=== PATIENT | female | born 1995 | race Caucasian/White ===

== ENCOUNTER → 2016-09-16 | Outpatient (CLI) | payer OTHER ==
[~2016-09-16] MED LIST: ESCI10TA17 PO; ETONMIS VAGRING
--- NOTE | 2016-09-16 14:36 | DIAGNOSTIC IMAGING REPORT ---
CHEST 2 VIEWS ROUTINE CLINICAL HISTORY: CHEST TIGHTNESS, SOB, FEVER COMPARISON STUDY: Chest CT July 07, 2015. FINDINGS: Lung volumes are normal. There is no pneumothorax or pleural effusion. Pulmonary vascularity is normal. Cardiomediastinal silhouette is normal. Lungs are clear. IMPRESSION: No acute cardiopulmonary findings. Electronically signed by: Clement Larsen M.D. 09/16/2016 2:35 PM Dictated Date/Time: 09/16/2016 2:34 PM
== END | disposition home or self-care (01) ==
LOC: C.RADBBURG 14:17
PROVIDERS: ATTEND Physician Assistant
DX: R50.9 Fever, unspecified (principal); R07.89 Other chest pain; R06.02 Shortness of breath

== ENCOUNTER 2017-06-30 20:04 | Emergency (ER) | payer SELFPAY ==
[~2017-06-30] VITALS: Ht 167.6 cm; Wt 101.8 kg
[2017-06-30 20:33] VITALS: TEMP 37.9; Ht 167.6 cm; Wt 101.8 kg
[2017-06-30] MEDS ORDERED: ONDANSETRON INJ 2 MG/ML 2 ML VIAL IV STA (20:47)
[2017-06-30] MEDS ORDERED: SODIUM CHLORIDE 0.9% 1000ML 1,000 ML IV STA (20:47)
[2017-06-30] MEDS ORDERED: OPTIRAY 320 IV PRN (21:00)
[2017-06-30 21:08] LABS: HEMATOCRIT 39.7 % (37-47); HEMOGLOBIN 13.5 g/dL (12.0-16.0); MEAN CELL VOLUME 82.2 fL (80-100); MEAN PLATELET VOLUME 9.2 fL (7.4-10.4); PLATELET COUNT 164 K/uL (130-400); RED CELL DISTRIBUTION WIDTH CV 14.7 % (11.5-14.5); RED CELL DISTRIBUTION WIDTH SD 43.8 fL (36.4-46.3); WHITE BLOOD COUNT 6.65 K/uL (4.8-10.8)
[2017-06-30 21:26] LABS: ALBUMIN 3.6 gm/dl (3.4-5.0); CALCIUM 8.9 mg/dl (8.5-10.1); CREATININE 0.92 mg/dl (0.60-1.20); POTASSIUM 3.7 mmol/L (3.5-5.1)
[2017-06-30 21:29] LABS: TOTAL PROTEIN 7.9 gm/dl (6.4-8.2)
[2017-06-30] MEDS ORDERED: ACETAMINOPHEN 500 MG TAB PO STA (23:02)
--- NOTE | 2017-06-30 23:21 | EMERGENCY ROOM VISIT NOTE ---
History First contact with patient: 20:36 Chief Complaint: ABDOMINAL PAIN Stated Complaint: NAUSEA,PAIN IN STOMACH,FEVER 6 DAYS Nursing Triage Summary: pt c/o fever, nausea nd right lower bad pain since last friday, sent in by pcp to r/o appy History of Present Illness The patient is a 22 year old female who presents to the Emergency Room with complaints of right lower quadrant abdominal pain, fever, nausea, and vomiting 6 days. The patient has been experiencing the above symptoms in addition to chills and a headache intermittently for the past 6 days. She states she has been running a fever between 101 and 102F. The fever does improve with Tylenol and Motrin. She states she has been experiencing mid abdominal pain, which seems to be radiating toward the right lower quadrant more recently. The pain is not affected by food or drink, the patient is tolerating food and liquids without complication. She denies any urinary symptoms including dysuria , hematuria, urinary frequency, or urinary hesitancy. She recently started a new job, so has tried not to take off work due to being on probation. The patient states she did take a negative test on , but she does use a NuvaRing for control. She saw her primary care provider at [facility] today and was sent here to rule out appendicitis. She denies any chest pain, dyspnea, tachycardia, upper respiratory infection symptoms, sore throat, nasal congestion, otalgia, upper abdominal pain, diarrhea, constipation. The patient's last bowel movement was this morning and was normal. Review of Systems A complete 10 point review of systems was reviewed with the patient with pertinent positives and negatives as per history of present illness. All else were negative. Past Medical/Surgical History Medical Problems: (1) Seasonal allergies (2) Sepsis Surgical Problems: (1) S/P tonsillectomy Family History Cancer Diabetes mellitus Heart disease Social History Smoking Status: Never Smoker Alcohol Use: none Drug Use: none Marital Status: in relationship Housing Status: lives with significant other Occupation Status: employed Current/Historical Medications Scheduled Escitalopram (Lexapro), 20 MG PO DAILY Etonogestrel/Ethinyl Estradiol (Nuvaring), 1 EA VAGRING MONTHLY Physical Exam Vital Signs Date Time Temp Pulse Resp B/P (MAP) Pulse Ox O2 Delivery O2 Flow Rate FiO2 3/5/18 20:33 37.9 91 18 141/90 98 Room Air Physical Exam VITALS: Vitals are noted on the nurse's note and reviewed by myself. Vital signs stable. GENERAL: This is a 22-year-old obese white female, in no acute distress, nondiaphoretic, well-developed well-nourished. SKIN: The skin was without rashes, erythema, edema, or bruising. There is no tenting of the skin. Capillary reflex less than 2 seconds. HEAD: Normocephalic atraumatic. EARS: External auditory canals clear, tympanic membranes pearly butcher without erythema or effusion bilaterally. EYES: Pupils equal round and reactive to light and accommodation. Conjunctivae without injection, sclerae without icterus. Extraocular movements intact. NOSE: Patent, turbinates without inflammation or discharge. No sinus tenderness. MOUTH: Mucous membranes moist. Tonsils are not enlarged. Pharynx without erythema or exudate. Uvula midline. Airway patent. Tongue does not deviate. NECK: Supple without nuchal rigidity. No lymphadenopathy. No thyromegaly. Cervical spine is nontender. No JVD. HEART: Regular rate and rhythm without murmurs gallops or rubs. LUNGS: Clear to auscultation bilaterally without wheezes, rales or rhonchi. No dullness to percussion. No retractions or accessory muscle use. ABDOMEN: Positive bowel sounds x 4. Normal tympanic percussion. Periumbilical and right lower quadrant abdominal tenderness on palpation. The abdomen was otherwise soft, nontender, without masses or organomegaly. Hart sign negative. No guarding or rebound tenderness. MUSCULOSKELETAL: No muscle atrophy, erythema, or edema noted. Full range of motion without joint tenderness in all extremities. No tenderness to palpation. Normal gait. Strength 5/5 throughout. NEURO: Patient was alert and oriented to person place and time. Normal sensation to light and sharp touch. Deep tendon reflexes 2+ throughout. No focal neurological deficits. Medical Decision & Procedures Laboratory Results 06/30/17 20:55 Red Blood Count 4.83, Mean Corpuscular Volume 82.2, Mean Corpuscular Hemoglobin 28.0, Mean Corpuscular Hemoglobin Concent 34.0, Mean Platelet Volume 9.2 06/30/17 20:55 Test 06/30/17 20:55 06/30/17 21:00 White Blood Count 6.65 K/uL (4.8-10.8) Red Blood Count 4.83 M/uL (4.2-5.4) Hemoglobin 13.5 g/dL (12.0-16.0) Hematocrit 39.7 % (37-47) Mean Corpuscular Volume 82.2 fL (80-100) Mean Corpuscular Hemoglobin 28.0 pg (25-34) Mean Corpuscular Hemoglobin Concent 34.0 g/dl (32-36) Platelet Count 164 K/uL (130-400) Mean Platelet Volume 9.2 fL (7.4-10.4) RDW Standard Deviation 43.8 fL (36.4-46.3) RDW Coefficient of Variation 14.7 % (11.5-14.5) Neutrophils % (Manual) 40.9 % Lymphocytes % (Manual) 29.1 % Variant Lymphocytes % (manual) 26.4 % Monocytes % (Manual) 1.8 % Basophils % (Manual) 1.8 % Neutrophils # (Manual) 2.72 K/uL (1.4-6.5) Total Absolute Neutrophils 2.72 K/uL (1.4-6.5) Lymphocytes # (Manual) 1.94 K/uL (1.2-3.4) Absolute Variant Lymphocytes 1.76 K/uL Total Absolute Lymphocytes 3.69 K/uL (1.2-3.4) Monocytes # (Manual) 0.12 K/uL (0.11-0.59) Basophils # (Manual) 0.12 K/uL (0-0.2) Anion Gap 8.0 mmol/L (3-11) Est Creatinine Clear Calc Drug Dose 113.5 ml/min Estimated GFR () 101.0 Estimated GFR (Non- 87.2 BUN/Creatinine Ratio 9.5 (10-20) Lactic Acid Level 1.1 mmol/L (0.4-2.0) Calcium Level 8.9 mg/dl (8.5-10.1) Total Bilirubin 0.4 mg/dl (0.2-1) Aspartate Amino Transf (AST/SGOT) 33 U/L (15-37) Alanine Aminotransferase (ALT/SGPT) 41 U/L (12-78) Alkaline Phosphatase 86 U/L (45-117) Total Protein 7.9 gm/dl (6.4-8.2) Albumin 3.6 gm/dl (3.4-5.0) Globulin 4.3 gm/dl (2.5-4.0) Albumin/Globulin Ratio 0.8 (0.9-2) Lipase 197 U/L (73-393) Urine Test NEG (NEG) Medications Administered Medications (Trade) Dose Ordered Sig/Dinora Route Start Time Stop Time Status Last Admin Dose Admin Sodium Chloride 1,000 ml @ 999 mls/hr Q1H1M STAT IV 06/30/17 20:47 06/30/17 21:47 DC 06/30/17 21:09 999 MLS/HR Ondansetron HCl (Zofran Inj) 4 mg NOW STAT IV 06/30/17 20:47 06/30/17 20:51 DC 06/30/17 21:09 4 MG ED Course The patient was seen and evaluated as above. IV access obtained, labs drawn. The patient was given 1L NSS and 4mg Zofran for symptoms. The patient was given p.o. contrast to drink prior to CT scan. Labs were reviewed. I discussed the findings with the patient at bedside. The patient requested a dose of Tylenol for pain. She was given 1000mg Tylenol PO. The case was discussed with and signed out to Jennie Lynch PA-C. Medical Decision This is a 22-year-old female patient presents to the emergency department today complaining of intermittent fevers and abdominal pain associated with nausea for the past week. The patient was seen by her PCP today and complaining of periumbilical and right lower quadrant abdominal pain, and was sent to the emergency department to rule out appendicitis. On evaluation, CBC was without leukocytosis, anemia, thrombus cytopenia. There is no bandemia. Urine test was negative. Lipase was negative. CMP did not show any significant renal, hepatic, electrolyte abnormalities. Urinalysis is still pending. CT abdomen/pelvis with IV and p.o. contrast is pending. I am concerned for possible appendicitis versus urinary tract infection. The patient was signed out to Jennie Lynch PA-C at the end of my shift. She will evaluate CT scan and UA. Etiologies such as appendicitis, diverticulitis, obstruction, inflammatory bowel disease, renal colic, PUD, biliary pathology, pancreatitis, mesenteric ischemia, aortic pathology, infections, genitourinary, UTI, perforated viscus, PID, STD, as well as others were entertained. Medication Reconcilliation Current Medication List: was personally reviewed by me Blood Pressure Screening Patient's blood pressure: Normal blood pressure Impression Primary Impression: Right lower quadrant abdominal pain Departure Information Referrals Kelsi Hogan PA-C (PCP) Patient Instructions My [facility]
--- NOTE | 2017-07-01 00:59 | EMERGENCY ROOM VISIT NOTE ---
ED Visit Note This case is signed out to me from Alexandra Hope PA-C pending CT and reevaluation in stable condition. Patient is having intermittent abdominal pain for a week. She was sent for CT for rule out appendicitis. CT scan was negative for appendicitis. Patient did not have acute abdomen on exam. She is well- appearing. No leukocytosis. Negative urine. Negative hCG. She is advised to rest, stay well hydrated, do a bland diet and follow-up family care in a day or 2 here in the ER sooner for abdominal pain, fevers, vomiting, worsening signs or symptoms or as needed. She was informed the pain persisted that she should see GI for possible colonoscopy. #1 abdominal pain, right lower quadrant Discharge instructions: DO NOT drive, drink alcohol, operate machinery, or perform dangerous activities today. You were given medications in the ER that can affect your ability to safely function or operate a vehicle. Ibuprofen(Motrin, Advil) may be used for fever or pain. Use 600mg every six hours as needed. Take with food. Avoid using more than 2400mg in a 24 hour period. Do not use 2400mg per day for more than three consecutive days without physician direction. Prolonged inappropriate use can lead to stomach upset or ulcers. (AND/OR) Acetaminophen(Tylenol) may be used for fever or pain. Use 1000mg every six hours as needed. Avoid using more than 3000mg in a 24 hour period. Rest and drink plenty of fluids as tolerated. Slow sips of water or sports drinks are recommended instead of large amounts all at once. Continue current medications. Once your stomach is settled start with a clear liquid diet (jello, soup broth, etc.) and then advance as tolerated. You should avoid full, heavy meals for about 24 hrs from the time your symptoms resolved. Return to the ER immediately for worsening or persistent abdominal pain, vomiting, fevers, chest pains, difficulty breathing, black or bloody stools, worsening of your condition, or as needed. Follow up with your primary physician in 24 hours for a recheck of your current condition. Problem List Medical Problems: (1) Seasonal allergies Status: Chronic Surgical Problems: (1) S/P tonsillectomy Status: Resolved Current/Historical Medications Scheduled Escitalopram (Lexapro), 20 MG PO DAILY Etonogestrel/Ethinyl Estradiol (Nuvaring), 1 EA VAGRING MONTHLY Allergies Coded Allergies: Amoxicillin (Verified Allergy, Intermediate, HIVES, 06/30/17) RASH/HIVES, EDEMA TO THROAT, LIPS, MOUTH Vital Signs Date Time Temp Pulse Resp B/P (MAP) Pulse Ox O2 Delivery O2 Flow Rate FiO2 06/30/17 20:33 37.9 91 18 141/90 98 Room Air Laboratory Results 06/30/17 20:55 Red Blood Count 4.83, Mean Corpuscular Volume 82.2, Mean Corpuscular Hemoglobin 28.0, Mean Corpuscular Hemoglobin Concent 34.0, Mean Platelet Volume 9.2 06/30/17 20:55 Test 06/30/17 20:55 06/30/17 21:00 06/30/17 21:30 White Blood Count 6.65 K/uL (4.8-10.8) Red Blood Count 4.83 M/uL (4.2-5.4) Hemoglobin 13.5 g/dL (12.0-16.0) Hematocrit 39.7 % (37-47) Mean Corpuscular Volume 82.2 fL (80-100) Mean Corpuscular Hemoglobin 28.0 pg (25-34) Mean Corpuscular Hemoglobin Concent 34.0 g/dl (32-36) Platelet Count 164 K/uL (130-400) Mean Platelet Volume 9.2 fL (7.4-10.4) RDW Standard Deviation 43.8 fL (36.4-46.3) RDW Coefficient of Variation 14.7 % (11.5-14.5) Neutrophils % (Manual) 40.9 % Lymphocytes % (Manual) 29.1 % Variant Lymphocytes % (manual) 26.4 % Monocytes % (Manual) 1.8 % Basophils % (Manual) 1.8 % Neutrophils # (Manual) 2.72 K/uL (1.4-6.5) Total Absolute Neutrophils 2.72 K/uL (1.4-6.5) Lymphocytes # (Manual) 1.94 K/uL (1.2-3.4) Absolute Variant Lymphocytes 1.76 K/uL Total Absolute Lymphocytes 3.69 K/uL (1.2-3.4) Monocytes # (Manual) 0.12 K/uL (0.11-0.59) Basophils # (Manual) 0.12 K/uL (0-0.2) Anion Gap 8.0 mmol/L (3-11) Est Creatinine Clear Calc Drug Dose 113.5 ml/min Estimated GFR () 101.0 Estimated GFR (Non- 87.2 BUN/Creatinine Ratio 9.5 (10-20) Lactic Acid Level 1.1 mmol/L (0.4-2.0) Calcium Level 8.9 mg/dl (8.5-10.1) Total Bilirubin 0.4 mg/dl (0.2-1) Aspartate Amino Transf (AST/SGOT) 33 U/L (15-37) Alanine Aminotransferase (ALT/SGPT) 41 U/L (12-78) Alkaline Phosphatase 86 U/L (45-117) Total Protein 7.9 gm/dl (6.4-8.2) Albumin 3.6 gm/dl (3.4-5.0) Globulin 4.3 gm/dl (2.5-4.0) Albumin/Globulin Ratio 0.8 (0.9-2) Lipase 197 U/L (73-393) Urine Test NEG (NEG) Urine Color DK YELLOW Urine Appearance CLOUDY (CLEAR) Urine pH 5.0 (4.5-7.5) Urine Specific [place] 1.027 (1.000-1.030) Urine Protein NEG (NEG) Urine Glucose (UA) NEG (NEG) Urine Ketones TRACE (NEG) Urine Occult Blood NEG (NEG) Urine Nitrite NEG (NEG) Urine Bilirubin NEG (NEG) Urine Urobilinogen NEG (NEG) Urine Leukocyte Esterase TRACE (NEG) Urine WBC (Auto) 5-10 /hpf (0-5) Urine RBC (Auto) 5-10 /hpf (0-4) Urine Hyaline Casts (Auto) 1-5 /lpf (0-5) Urine Epithelial Cells (Auto) >30 /lpf (0-5) Urine Bacteria (Auto) 1+ (NEG) Medications Administered Medications (Trade) Dose Ordered Sig/Dinora Route Start Time Stop Time Status Last Admin Dose Admin Sodium Chloride 1,000 ml @ 999 mls/hr Q1H1M STAT IV 06/30/17 20:47 06/30/17 21:47 DC 06/30/17 21:09 999 MLS/HR Ondansetron HCl (Zofran Inj) 4 mg NOW STAT IV 06/30/17 20:47 06/30/17 20:51 DC 06/30/17 21:09 4 MG Acetaminophen (Tylenol Tab) 1,000 mg NOW STAT PO 06/30/17 23:02 06/30/17 23:03 DC 06/30/17 23:14 1,000 MG Departure Information Impression Primary Impression: Right lower quadrant abdominal pain Referrals Kelsi Hogan PA-C (PCP) Patient Instructions [facility]
[2017-07-01 01:13] VITALS: BP 124/75; PULSE 82; O2SAT 97
--- NOTE | 2017-07-01 06:55 | DIAGNOSTIC IMAGING REPORT ---
ABDOMEN AND PELVIS CT WITH IV AND ORAL CONTRAST CT DOSE: 987.04 mGy.cm HISTORY: Acute right lower quadrant abdominal pain with fever RLQ abdominal pain, fever TECHNIQUE: Multiaxial CT images of the abdomen and pelvis were performed following the use of intravenous and oral contrast. A dose lowering technique was utilized adhering to the principles of ALARA. COMPARISON STUDY: CT abdomen and pelvis 04/18/2016. FINDINGS: Lung bases are clear. No pneumatosis or pneumoperitoneum. The imaged inferior cardiac chambers are unremarkable. Liver, gallbladder, pancreas and adrenal glands are within normal limits. Spleen is mildly enlarged, 14 cm. Kidneys, ureters and urinary bladder are within normal limits. A pessary device is noted within the vagina. Uterus and adnexa are unremarkable. Trace free pelvic fluid, likely physiologic. Aorta is normal in course and caliber. IVC appears unremarkable. No bulky adenopathy. There is no bowel obstruction identified. The appendix appears normal. Underdistention of small bowel within the left upper quadrant causes minimal wall thickening. No evidence of enteritis. Soft tissues are unremarkable. Bones appear to be intact. Transitional lumbosacral anatomy with broadened and elongated right L5 transverse process causing pseudoarticulation with the adjacent right sacral base. IMPRESSION: 1. No acute intra-abdominal or intrapelvic abnormality identified, specifically the appendix appears normal. 2. Mild splenomegaly. 3. Transitional lumbosacral anatomy. Electronically signed by: Alphonso Winn M.D. 07/01/2017 6:54 AM Dictated Date/Time: 07/01/2017 6:50 AM
== END 2017-07-01 01:15 | disposition home or self-care (01) ==
LOC: C.EDB 20:05 → C.EDC 07-01 01:15
DX: R10.31 Right lower quadrant pain (principal); J30.2 Other seasonal allergic rhinitis; Z80.9 Family history of malignant neoplasm, unspecified; Z83.3 Family history of diabetes mellitus; Z82.49 Family history of ischemic heart disease and other diseases of the circulatory system; Z79.899 Other long term (current) drug therapy

== ENCOUNTER 2017-07-02 00:41 | Emergency (ER) | payer SELFPAY ==
[~2017-07-02] VITALS: Ht 167.6 cm; Wt 100.0 kg
[~2017-07-02 00:41] MED LIST changes: -ETONMIS VAGRING
[2017-07-02] MEDS ORDERED: ACETAMINOPHEN 500 MG TAB PO STA (00:57)
[2017-07-02] MEDS ORDERED: SODIUM CHLORIDE 0.9% 1000ML 2,000 ML IV STA (00:57)
[2017-07-02] MEDS ORDERED: ONDANSETRON INJ 2 MG/ML 2 ML VIAL IV STA (00:57)
[2017-07-02] MEDS ORDERED: DEXAMETHASONE **PF** INJ 10 MG/ML VIAL IV ONE (01:00)
[2017-07-02 01:03] VITALS: Ht 167.6 cm; Wt 100.0 kg
[2017-07-02 01:18] VITALS: O2SAT 97
[2017-07-02 01:32] LABS: INFLUENZA B ANTIGEN Neg for Influ B (NEG)
[2017-07-02 01:48] LABS: HEMATOCRIT 36.5 % (37-47); HEMOGLOBIN 12.3 g/dL (12.0-16.0); MEAN CELL VOLUME 81.5 fL (80-100); MEAN CORPUSCULAR HEMOGLOBIN 27.5 pg (25-34); MEAN CORPUSCULAR HGB CONC 33.7 g/dl (32-36); MEAN PLATELET VOLUME 8.9 fL (7.4-10.4); PLATELET COUNT 146 K/uL (130-400); RED CELL DISTRIBUTION WIDTH CV 14.9 % (11.5-14.5); WHITE BLOOD COUNT 5.39 K/uL (4.8-10.8)
[2017-07-02 01:57] LABS: PTT PATIENT 25.4 SECONDS (21.0-31.0)
[2017-07-02] MEDS ORDERED: CEFTRIAXONE SOD INJ 2,000 MG in DEXTROSE 5% 50ML 50 ML IV STA (02:05)
[2017-07-02 02:16] LABS: ALBUMIN 3.4 gm/dl (3.4-5.0); ALT/SGPT 45 U/L (12-78); AST/SGOT 38 U/L (15-37); BLOOD UREA NITROGEN 10 mg/dl (7-18); CALCIUM 8.4 mg/dl (8.5-10.1); CARBON DIOXIDE 21 mmol/L (21-32); CREATININE 1.01 mg/dl (0.60-1.20); GLUCOSE 101 mg/dl (70-99); POTASSIUM 3.6 mmol/L (3.5-5.1); SODIUM 137 mmol/L (136-145)
[2017-07-02 02:27] LABS: ALKALINE PHOSPHATASE 85 U/L (45-117)
[2017-07-02] MEDS ORDERED: LIDOCAINE HCL 1% 20 ML VIAL ONE (02:30)
[2017-07-02] MEDS ORDERED: SODIUM CHLORIDE 0.9% 1000ML 1,000 ML IV STA (02:48)
[2017-07-02 03:16] LABS: CSF GLUCOSE 54 mg/dl (40-70); CSF TOTAL PROTEIN 38.3 mg/dl (15.0-45.0)
[2017-07-02] MEDS ORDERED: GADAVIST IV PRN (03:40)
[2017-07-02] MEDS ORDERED: ONDANSETRON HOME PACK 4MG OD TAB PO ONE (04:45)
--- NOTE | 2017-07-02 04:52 | EMERGENCY ROOM VISIT NOTE ---
History First contact with patient: 00:51 Chief Complaint: VOMITING Stated Complaint: CHEST PAIN,NAUSEA,VOMITTING,SHAKES Nursing Triage Summary: Nausea, vomiting, shaking, chest discomfort and fevers for the past week. Pt seen here yesterday, sx's not resolved. History of Present Illness The patient is a 22 year old female who presents to the Emergency Room with complaints of fever, chills, chest pain, nausea, vomiting today. Patient complains of headache and neck discomfort today. Pain currently 5 out of 10. Nothing makes it better or worse. She is tolerating fluids. Patient works at a senior living. Patient states for the past week she has been having intermittent abdominal discomfort with intermittent fevers. She was seen here yesterday and had a negative abdominal CT scan. No recent travel. T-max 102. Patient denies dyspnea, cough, sore throat, sinus pain and congestion, rhinorrhea, diarrhea, vaginal pain or discharge, urinary symptoms. Patient denies IV drug abuse. Patient did not receive the flu vaccine. Upon further questioning after abnormal LP, patient states she has been suffering from intermittent headache for years and photopsia with back pain and diplopia. She has not seen a neurologist for this. No known history of idiopathic intracranial hypertension. No prolonged complete loss of vision. Patient denies localized weakness, seizures, recreational drug use. Review of Systems An 10 system review of systems was completed with positives and pertinent negatives listed in the HPI. Past Medical/Surgical History Medical Problems: (1) Seasonal allergies (2) Sepsis Surgical Problems: (1) S/P tonsillectomy Family History Cancer Diabetes mellitus Heart disease Social History Smoking Status: Never Smoker Alcohol Use: none Drug Use: none Marital Status: in relationship Housing Status: lives with significant other Occupation Status: employed Current/Historical Medications Scheduled Escitalopram (Lexapro), 20 MG PO DAILY Etonogestrel/Ethinyl Estradiol (Nuvaring), 1 EA VAGRING MONTHLY Physical Exam Vital Signs Date Time Temp Pulse Resp B/P (MAP) Pulse Ox O2 Delivery O2 Flow Rate FiO2 07/02/17 04:32 76 20 109/63 96 Room Air 07/02/17 03:02 37.6 94 20 103/59 95 Room Air 07/02/17 01:36 121 20 114/64 97 Room Air 07/02/17 01:19 120 07/02/17 01:18 97 Room Air 07/02/17 00:43 38.3 79 18 131/62 100 Room Air Physical Exam VITALS: Vitals are noted on the nurse's note and reviewed by myself. Vital signs febrile. GENERAL: White female mildly ill-appearing well-developed well-nourished. SKIN: The skin was without rashes, erythema, edema, or bruising. There is no tenting of the skin. Capillary reflex less than 2 seconds. HEAD: Normocephalic atraumatic. EARS: External auditory canals clear, tympanic membranes pearly butcher without erythema or effusion bilaterally. EYES: Pupils equal round and reactive to light and accommodation. Conjunctivae without injection, sclerae without icterus. Extraocular movements intact. NOSE: Patent, turbinates without inflammation or discharge. No sinus tenderness. MOUTH: Mucous membranes moist. Pharynx without erythema or exudate. Uvula midline. Airway patent. Tongue does not deviate. NECK: Supple without nuchal rigidity. No lymphadenopathy. No thyromegaly. Cervical spine is nontender. No JVD. HEART: Regular rate and rhythm without murmurs gallops or rubs. LUNGS: Clear to auscultation bilaterally without wheezes, rales or rhonchi. No retractions or accessory muscle use. ABDOMEN: Positive bowel sounds x 4. Normal tympanic percussion. Soft, protuberant, obese, nontender, without masses or organomegaly. Hart sign negative. No guarding or rebound tenderness. No CVA tenderness MUSCULOSKELETAL: No muscle atrophy, erythema, or edema noted. NEURO: Patient was alert and oriented to person place and time. Normal sensation to light and sharp touch. No focal neurological deficits. Cranial nerves II through XII grossly intact. No pronator drift. Cerebellar exam intact. Medical Decision & Procedures Laboratory Results 07/02/17 01:15 Red Blood Count 4.48, Mean Corpuscular Volume 81.5, Mean Corpuscular Hemoglobin 27.5, Mean Corpuscular Hemoglobin Concent 33.7, Mean Platelet Volume 8.9 07/02/17 01:15 Test 07/02/17 01:06 07/02/17 01:11 07/02/17 01:15 07/02/17 01:30 Influenza Type A Antigen Neg for Influ A (NEG) Influenza Type B Antigen Neg for Influ B (NEG) Urine WBC (Auto) 10-30 /hpf (0-5) Urine RBC (Auto) 0-4 /hpf (0-4) Urine Hyaline Casts (Auto) 1-5 /lpf (0-5) Urine Epithelial Cells (Auto) >30 /lpf (0-5) Urine Bacteria (Auto) 2+ (NEG) White Blood Count 5.39 K/uL (4.8-10.8) Red Blood Count 4.48 M/uL (4.2-5.4) Hemoglobin 12.3 g/dL (12.0-16.0) Hematocrit 36.5 % (37-47) Mean Corpuscular Volume 81.5 fL (80-100) Mean Corpuscular Hemoglobin 27.5 pg (25-34) Mean Corpuscular Hemoglobin Concent 33.7 g/dl (32-36) Platelet Count 146 K/uL (130-400) Mean Platelet Volume 8.9 fL (7.4-10.4) RDW Standard Deviation 44.0 fL (36.4-46.3) RDW Coefficient of Variation 14.9 % (11.5-14.5) Neutrophils % (Manual) 42.0 % Lymphocytes % (Manual) 19.6 % Variant Lymphocytes % (manual) 34.8 % Monocytes % (Manual) 0.9 % Eosinophils % (Manual) 1.8 % Myelocytes % 0.9 % Neutrophils # (Manual) 2.26 K/uL (1.4-6.5) Total Absolute Neutrophils 2.26 K/uL (1.4-6.5) Lymphocytes # (Manual) 1.06 K/uL (1.2-3.4) Absolute Variant Lymphocytes 1.88 K/uL Total Absolute Lymphocytes 2.93 K/uL (1.2-3.4) Monocytes # (Manual) 0.05 K/uL (0.11-0.59) Eosinophils # (Manual) 0.10 K/uL (0-0.5) Myelocytes # 0.05 K/uL (0-0) Red Blood Cell Morphology Unremarkable Prothrombin Time 10.0 SECONDS (9.0-12.0) Prothromb Time International Ratio 1.0 (0.9-1.1) Activated Partial Thromboplast Time 25.4 SECONDS (21.0-31.0) Partial Thromboplastin Ratio 1.0 Anion Gap 12.0 mmol/L (3-11) Est Creatinine Clear Calc Drug Dose 102.4 ml/min Estimated GFR () 90.2 Estimated GFR (Non- 77.9 BUN/Creatinine Ratio 10.4 (10-20) Calcium Level 8.4 mg/dl (8.5-10.1) Magnesium Level 1.8 mg/dl (1.8-2.4) Total Bilirubin 0.6 mg/dl (0.2-1) Aspartate Amino Transf (AST/SGOT) 38 U/L (15-37) Alanine Aminotransferase (ALT/SGPT) 45 U/L (12-78) Alkaline Phosphatase 85 U/L (45-117) Troponin I < 0.015 ng/ml (0-0.045) Total Protein 7.0 gm/dl (6.4-8.2) Albumin 3.4 gm/dl (3.4-5.0) Globulin 3.6 gm/dl (2.5-4.0) Albumin/Globulin Ratio 0.9 (0.9-2) Thyroid Stimulating Hormone (TSH) 2.800 uIu/ml (0.300-4.500) Human Chorionic Gonadotropin, Qual NEG (NEG) Lyme Disease IgG Antibody NEG (NEG) Lyme Disease IgM Antibody NEG (NEG) Monoscreen POS (NEG) Bedside Lactic Acid Venous 1.31 mmol/L (0.90-1.70) Test 07/02/17 01:31 07/02/17 02:40 07/02/17 04:01 07/02/17 04:05 Bedside Troponin I < 0.030 ng/ml (0-0.045) CSF Color COLORLESS CSF Appearance CLEAR CSF WBC 2 /uL (0-5) CSF RBC 0 /uL (0) CSF Xanthrochromic NO XANTHOCHROMIA CSF Cell Count Tube # 4 CSF Chemistry Tube # 2 CSF Glucose 54 mg/dl (40-70) CSF Total Protein 38.3 mg/dl (15.0-45.0) Urine Color YELLOW Urine Appearance CLEAR (CLEAR) Urine pH 5.0 (4.5-7.5) Urine Specific [place] 1.010 (1.000-1.030) Urine Protein NEG (NEG) Urine Glucose (UA) NEG (NEG) Urine Ketones TRACE (NEG) Urine Occult Blood NEG (NEG) Urine Nitrite NEG (NEG) Urine Bilirubin NEG (NEG) Urine Urobilinogen NEG (NEG) Urine Leukocyte Esterase NEG (NEG) Medications Administered Medications (Trade) Dose Ordered Sig/Dinora Route Start Time Stop Time Status Last Admin Dose Admin Sodium Chloride 2,000 ml @ 999 mls/hr Q2H1M STAT IV 07/02/17 00:57 07/02/17 02:57 DC 07/02/17 01:30 999 MLS/HR Ondansetron HCl (Zofran Inj) 4 mg NOW STAT IV 07/02/17 00:57 07/02/17 01:01 DC 07/02/17 01:31 4 MG Acetaminophen (Tylenol Tab) 1,000 mg NOW STAT PO 07/02/17 00:57 07/02/17 01:01 DC 07/02/17 01:31 1,000 MG Dexamethasone Sodium Phosphate (Dexamethasone Inj Pf) 10 mg NOW ONCE IV 07/02/17 01:00 07/02/17 01:01 DC 07/02/17 01:31 10 MG Ceftriaxone Sodium 2000 mg/ Dextrose 70 ml @ 100 mls/hr ONE STAT IV 07/02/17 02:05 07/02/17 02:46 DC 07/02/17 02:05 100 MLS/HR Sodium Chloride 1,000 ml @ 999 mls/hr Q1H1M STAT IV 07/02/17 02:48 07/02/17 03:48 DC 07/02/17 03:02 999 MLS/HR Procedure Lumbar Puncture Indication: Headache and fever, rule out meningitis. Verbal consent was obtained after the risks and benefits were explained, including but not limited to headache, bleeding/clotting, scarring, infection, pain, and bone/joint/nerve damage. At this time, the risks of the procedure are less than the risks of NOT performing the procedure. A time out was taken and the correct patient and site identified. The patient was placed in the sitting position and the back was prepped with betadine and draped in the standard fashion. The L3 intervertebral space was identified, anesthetized locally with 1 % lidocaine without epinephrine, and the spinal needle was inserted through the skin with the bevel parallel to the dural fibers. The needle was carefully advanced into the lumbar cistern and 4 tubes of clear CSF was obtained. Patient 's CSF fluid was pouring out so a pressure was obtained. Pressure was 30. This is after 10-15 mL's of CSF fluid was removed. The stylet was replaced and the needle was removed. A bandaid was placed and the patient was placed in the supine position. The patient tolerated the procedure well and there were no complications. Patient was counseled on spinal headaches and recommendations of returning for possible blood patch. ED Course Prior records/ancillary studies reviewed. Triage Nursing notes reviewed. Additional history obtained from family. The patient's history was concerning for fever. Differential diagnosis: Etiologies such as viral syndrome, otitis, pharyngitis, pneumonia, influenza, meningitis, urinary tract infection, sepsis, bacteremia, as well as others were entertained. Physical examination: Patient is alert and tolerating fluids ER treatment provided: IV fluids, Tylenol, Decadron, Zofran On reassessment the patient felt better. Diagnostics interpreted by me: Reason for EKG is chest pain: ECG: Normal sinus, normal intervals, no acute ST- T wave changes, rate of 119. Impression sinus tachycardia interpreted by myself The labs revealed negative lactic acid, blood cultures pending, negative flu. No leukocytosis. Positive mono. The CSF showed no RBCs, 2 WBCs, neg initial gram stain Imaging studies: Chest x-ray with no acute consolidation, pneumothorax or free of my interpretation head CT negative for intracranial bleed. Aplastic right frontal sinus. Read by radiology. ABDOMEN AND PELVIS CT WITH IV AND ORAL CONTRAST CT DOSE: 987.04 mGy.cm HISTORY: Acute right lower quadrant abdominal pain with fever RLQ abdominal pain, fever TECHNIQUE: Multiaxial CT images of the abdomen and pelvis were performed following the use of intravenous and oral contrast. A dose lowering technique was utilized adhering to the principles of ALARA. COMPARISON STUDY: CT abdomen and pelvis 04/18/2016. FINDINGS: Lung bases are clear. No pneumatosis or pneumoperitoneum. The imaged inferior cardiac chambers are unremarkable. Liver, gallbladder, pancreas and adrenal glands are within normal limits. Spleen is mildly enlarged, 14 cm. Kidneys, ureters and urinary bladder are within normal limits. A pessary device is noted within the vagina. Uterus and adnexa are unremarkable. Trace free pelvic fluid, likely physiologic. Aorta is normal in course and caliber. IVC appears unremarkable. No bulky adenopathy. There is no bowel obstruction identified. The appendix appears normal. Underdistention of small bowel within the left upper quadrant causes minimal wall thickening. No evidence of enteritis. Soft tissues are unremarkable. Bones appear to be intact. Transitional lumbosacral anatomy with broadened and elongated right L5 transverse process causing pseudoarticulation with the adjacent right sacral base. IMPRESSION: 1. No acute intra-abdominal or intrapelvic abnormality identified, specifically the appendix appears normal. 2. Mild splenomegaly. 3. Transitional lumbosacral anatomy. Electronically signed by: Alphonso Winn M.D. MRI HEAD : No acute infarct, mass effect or edema. No abnormal foci of signal or enhancement in the brain parenchyma. No findings to support diagnosis of idiopathic intracranial hypertension. Specifically, no empty sella, no prominence of optic nerve sheath, and no evidence of transverse sinus stenosis (evaluation of transverse sinuses is not optimal). Radiologist: Juan Paniagua MD This appears to be consistent with mononucleosis with elevated intracranial pressures concerning for possible IIH. Patient was counseled on close follow- up with neurology and with ophthalmology. Patient states she will see her spinner tender at [facility]. Case management states they will help facilitate follow-up appointment with neurology. Patient did not have acute abdomen on exam. She is counseled on mononucleosis and precautions. No prior history of having this. She is advised no sports or strenuous activity until cleared by the family care doctor. Patient was neurovascularly and neurologically intact. Patient had no current vision loss. Patient had a negative lactic acid. Blood cultures pending. No pneumonia on x-ray. MRI was normal. By the evaluation outlined above emergent etiologies such as otitis, pharyngitis, pneumonia, meningitis, urinary tract infection, sepsis, bacteremia, as well as others were deemed relatively unlikely. The pt informed about the findings as listed above. All questions were answered and pleased with the treatment. Return instructions were outlined and the patient was discharged in stable condition. Outpatient prescription management: zofran Referral: The patient was referred back to their primary care physician for follow-up in 2 to 3 days for a recheck of the current condition. Patient was also informed to follow-up with neurology and ophthalmology for further evaluation for possible IIH. Case reviewed with my attending The chart was completed utilizing [employer] voice recognition software. Grammatical errors, random word insertions, pronoun errors, and incomplete sentences are an occassional consequence of this system due to software limitations, ambient noise, and hardware issues. Any formal questions or concerns about the content, text, or information contained within the body of this dictation should be directly addressed to the physician hospital aides and assistants teacher for clarification. Medical Decision As above Medication Reconcilliation Current Medication List: was personally reviewed by me Blood Pressure Screening Patient's blood pressure: Normal blood pressure Impression Primary Impression: Mononucleosis Additional Impressions: Headache Vision disturbance Elevated intracranial pressure Departure Information Dispostion Home / Self-Care Condition GOOD Referrals Kelsi Hogan PA-C (PCP) Patient Instructions My [facility] Additional Instructions You received a lumbar puncture today. If you develop a headache when you sit up and goes away when you lay down and does not go away Tylenol and/or Motrin then you can come to the ER for possible blood patch. No sports or strenuous activity until cleared by the family care doctor. You are at risk for enlarged spleen. If this ruptures you can become very sick and . You should get checked for idiopathic intracranial hypertension. You should see a neurologist and spinner tender for this. My case management will help facilitate follow-up with neurology. You should see your spinner tender this week and have them check you for idiopathic intracranial hypertension. Acetaminophen(Tylenol) may be used for fever or pain. Use 1000mg every six hours as needed. Avoid using more than 3000mg in a 24 hour period. (AND/OR) Ibuprofen(Motrin, Advil) may be used for fever or pain. Use 600mg every six hours as needed. Take with food. Avoid using more than 2400mg in a 24 hour period. Do not use 2400mg per day for more than three consecutive days without physician direction. Prolonged inappropriate use can lead to stomach upset or ulcers. Afrin nasal spray: 2-3 sprays to each nostril twice daily as needed for congestion. Do not use for more than 3-4 days because it can lead to worsening rebound congestion. Pseudoephedrine(Sudaphed): 30-60mg every 6 hours as needed for nasal congestion. Do not take this with other stimulant products or supplements. Rest and drink plenty of fluids. Controlling your fever with Tylenol and Ibuprofen as above will make you feel better. Wash your hands after nose blowing, sneezing, or coughing. Most germs are spread through contact, therefore improper hygiene may result in your close contacts and loved ones becoming ill just like you. Continue current medications. Return to the ER for severe headache, neck stiffness, chest pain, difficulty breathing, fevers, vomiting, worsening of your condition, or as needed. Follow up with your primary physician this week for a recheck of your current condition. Problem Qualifiers
[2017-07-02 05:05] VITALS: BP 114/67; PULSE 74; TEMP 37.4; O2SAT 96
--- NOTE | 2017-07-02 06:27 | DIAGNOSTIC IMAGING REPORT ---
CT HEAD WITHOUT CONTRAST (CT) CLINICAL HISTORY: Headache and fever COMPARISON STUDY: No previous studies for comparison. TECHNIQUE: Axial CT of the brain is performed from the vertex to the skull base. IV contrast was not administered for this examination. A dose lowering technique was utilized adhering to the principles of ALARA. CT DOSE: 638.56 mGycm FINDINGS: No intra or extra-axial mass lesions are visualized. There is no CT evidence of acute cortical infarction. There is no evidence of midline shift. There is no acute hemorrhage. No calvarial fractures are visualized. There is no evidence of pathologic ventricular dilatation. There is no evidence of acute sinusitis IMPRESSION: Normal noncontrast head CT. Electronically signed by: Alessio Lugo M.D. 07/02/2017 6:26 AM Dictated Date/Time: 07/02/2017 6:25 AM
--- NOTE | 2017-07-02 06:34 | DIAGNOSTIC IMAGING REPORT ---
CHEST ONE VIEW PORTABLE HISTORY: 22 years-old Female Sepsis sepsis with acute atypical chest pain COMPARISON: Chest radiographs 09/16/2016 TECHNIQUE: Portable AP view of the chest FINDINGS: Cardiomediastinal and hilar silhouettes are within normal limits. Minimal right hemidiaphragmatic elevation. Hazy ill-defined opacity of the left lung base is thought to be secondary to composite pulmonary vascularity. No lobar airspace consolidation. Bones of the chest appear grossly intact. IMPRESSION: ill-defined opacity of the left lung base is likely secondary to composite pulmonary vascularity with airspace disease thought to be less likely. The lungs otherwise appear clear. The above report was generated using voice recognition software. It may contain grammatical, syntax or spelling errors. Electronically signed by: Alphonso Winn M.D. 07/02/2017 6:33 AM Dictated Date/Time: 07/02/2017 6:31 AM
--- NOTE | 2017-07-02 06:36 | DIAGNOSTIC IMAGING REPORT ---
BRAIN COMBO CLINICAL HISTORY: NAGEL/fever, elevated CSF pressure, ? IIH mental status change COMPARISON STUDY: No previous studies for comparison. TECHNIQUE: Utilizing a 1.5 Isabella magnet and dedicated coil, multiplanar, multiecho imaging of the brain was performed pre and postcontrast administration. IV administration of 10 mL of Gadavist contrast was uneventful. FINDINGS: Diffusion-weighted images are negative for an acute ischemic event. Signal characteristics the cerebellar as well as cerebral hemispheres are unremarkable. Ventricular system is midline. The sella and parasellar regions are unremarkable. There is no significant postcontrast enhancement. IMPRESSION: Normal study. The above report was generated using voice recognition software. It may contain grammatical, syntax or spelling errors. Electronically signed by: Skip Walls M.D. 07/02/2017 6:35 AM Dictated Date/Time: 07/02/2017 6:32 AM
== END 2017-07-02 05:07 | disposition home or self-care (01) ==
LOC: C.EDB 00:42
DX: B27.90 Infectious mononucleosis, unspecified without complication (principal); R51 Headache; H53.8 Other visual disturbances; G93.2 Benign intracranial hypertension; R11.2 Nausea with vomiting, unspecified; Z97.5 Presence of (intrauterine) contraceptive device; Z83.3 Family history of diabetes mellitus; Z82.49 Family history of ischemic heart disease and other diseases of the circulatory system

== ENCOUNTER 2017-07-04 16:32 | Emergency (ER) | payer SELFPAY ==
[~2017-07-04] VITALS: Ht 167.6 cm; Wt 101.5 kg
[2017-07-04 16:36] VITALS: Ht 167.6 cm; Wt 101.5 kg
--- NOTE | 2017-07-04 16:53 | EMERGENCY ROOM VISIT NOTE ---
History Report prepared by Juan J: Christiano Phillips Under the Supervision of: Dr. Rodolfo Ayers M.D. First contact with patient: 16:38 Chief Complaint: OTHER COMPLAINT Stated Complaint: NEED BLOOD PATCH, HAD SPINAL 2DAYS AGO History of Present Illness The patient is a 22 year old female who presents to the Emergency Room with complaints of a worsening headache over the past 2 days. The patient states that she had a headache with neck stiffness for 2 weeks with intermittent fevers , so she had a spinal tap done 2 days ago. She notes that she was diagnosed with mononucleosis and had a negative flu. The patient adds that after the spinal tap she was diagnosed with a possible pseudotumor, and was supposed to go to [place] today to see a neurologist. However, she started having a sharp throbbing headache after the spinal tap, which she rates as a 10 out of 10 in severity. The patient adds that she also has had worsening neck stiffness, which she rates as a 10 out of 10. She notes that the headache is on both sides of her forehead and behind her eyes. The patient states that she has been nauseous, with some ringing in her ears. The patient states that only laying straight down makes the pain go away. The patient states that she was told about the possibility of a blood patch, and she looked it up, and her symptoms seemed consistent with a spinal headache so she decided to come to the ED. She denies any vomiting, dizziness, current fevers, chest pain, or shortness of breath. The patient states that she has been taking Tylenol and Ibuprofen without any relief. Source of History: patient Onset: Over past 2 days Position: head Symptom Intensity: 10/10 Quality: sharp, other (throbbing) Timing: worsening Associated Symptoms: + neck pain (stiffness), + nausea, No fevers, No chest pain, No SOB, No vomiting Note: Associated symptoms: Ear ringing. Denies dizziness. Review of Systems See HPI for pertinent positives & negatives. A total of 10 systems reviewed and were otherwise negative. Past Medical & Surgical Medical Problems: (1) Seasonal allergies (2) Sepsis Surgical Problems: (1) S/P tonsillectomy Family History Cancer Diabetes mellitus Heart disease Social History Smoking Status: Former Smoker Alcohol Use: none Drug Use: none Marital Status: in relationship Housing Status: lives with significant other Occupation Status: employed Current/Historical Medications Scheduled Escitalopram Oxalate (Escitalopram Oxalate), 20 MG PO DAILY Etonogestrel/Ethinyl Estradiol (Nuvaring), 1 EA VAGRING MONTHLY Allergies Coded Allergies: Amoxicillin (Verified Allergy, Intermediate, HIVES, 07/02/17) RASH/HIVES, EDEMA TO THROAT, LIPS, MOUTH Physical Exam Vital Signs Date Time Temp Pulse Resp B/P (MAP) Pulse Ox O2 Delivery O2 Flow Rate FiO2 07/04/17 19:36 80 20 123/68 98 Room Air 07/04/17 16:36 36.3 102 20 138/83 100 Room Air Physical Exam GENERAL: Patient is in no acute distress. HEENT: No acute trauma, normocephalic atraumatic, mucous membranes moist, no nasal congestion, no scleral icterus. NECK: No stridor, no adenopathy, no meningismus, trachea is midline. LUNGS: Clear to auscultation bilaterally, no wheeze, no rhonchi, breath sounds equal. HEART: Without murmurs gallops or rubs, regular rate and rhythm. ABDOMEN: Soft, nontender, bowel sounds positive, no hernias, no peritonitis. EXTREMITIES: No cyanosis or edema, full range of motion of all the joints without pain or difficulty, no signs for acute trauma. NEUROLOGIC: Oriented x 3, no acute motor or sensory deficits, no focal weakness. SKIN: No rash, no jaundice, no diaphoresis. Medical Decision & Procedures Medications Administered Medications (Trade) Dose Ordered Sig/Dinora Route Start Time Stop Time Status Last Admin Dose Admin Sodium Chloride 1,000 ml @ 999 mls/hr Q1H1M STAT IV 07/04/17 16:59 07/04/17 17:59 DC 07/04/17 17:14 999 MLS/HR Ketorolac Tromethamine (Toradol Inj) 30 mg NOW STAT IV 07/04/17 16:59 07/04/17 17:02 DC 07/04/17 17:14 30 MG Ondansetron HCl (Zofran Inj) 4 mg NOW STAT IV 07/04/17 16:59 07/04/17 17:02 DC 07/04/17 17:14 4 MG ED Course 1640: The medical student, Diane Soto, evaluated the patient. 1651: The patient was evaluated in room B12B. A complete history and physical exam was performed. 8: I discussed the patient with Dr. Blair of anesthesiology. 1658: Zofran Inj 4 mg IV, Toradol Inj 30 mg IV, NSS 1000 ml @ 999 mls/hr IV. 1848: I reevaluated the patient and anesthesia is here. 1917: Anesthesia saw the patient but they have not talked about what they are going to do yet. 2014: Case signed out to Dr. Dc. Medical Decision Differential diagnosis includes but is not limited to dehydration, electrolyte imbalance, infection, intracranial bleeding, migraine headache, meningitis or spinal headache. The patient presents with a headache which is present with sitting or standing and resolves with lying flat. She had a lumbar puncture done 2 days ago. She has no focal neurologic deficits. She is not febrile or toxic. With the last ED visit, the patient was diagnosed with mononucleosis. There was concern that she had an elevated intracranial pressure with the LP, however , the LP was done in the seated position and this can falsely raise the intracranial pressure. The patient received IV saline, IV Toradol and IV Zofran, she is resting comfortably as long as she lays flat. The patient will be seen by anesthesiology for a possible blood patch. Please see their notes. At this point, the case is being assumed by Dr. Dc, please see her notes. Her symptoms are consistent with a spinal headache. Medication Reconcilliation Current Medication List: was personally reviewed by me Blood Pressure Screening Patient's blood pressure: Elevated blood pressure Blood pressure disposition: Elevated BP felt to be situational Consults Time Called: 1654 Consulting Physician: Dr. Blair of anesthesiology Returned Call: 1657 I discussed the patient with Dr. Blair of anesthesiology. Impression Primary Impression: Spinal headache Scribe Attestation The scribe's documentation has been prepared under my direction and personally reviewed by me in its entirety. I confirm that the note above accurately reflects all work, treatment, procedures, and medical decision making performed by me. Departure Information Dispostion Still a Patient Referrals Kelsi Hogan PA-C (PCP) Patient Instructions My [facility]
[2017-07-04] MEDS ORDERED: KETOROLAC TROMETHAMINE 30 MG/ML VIAL IV STA (16:59)
[2017-07-04] MEDS ORDERED: ONDANSETRON INJ 2 MG/ML 2 ML VIAL IV STA (16:59)
[2017-07-04] MEDS ORDERED: SODIUM CHLORIDE 0.9% 1000ML 1,000 ML IV STA (16:59)
[2017-07-04] MEDS ORDERED: LXP/20 PO (17:12)
[2017-07-04] MEDS ORDERED: CAFFEINE CITRATE 500 MG in SODIUM CHLORIDE 0.9% 1000ML 1,000 ML IV STA (20:06)
[2017-07-04] MEDS ORDERED: GABAPENTIN 100 MG CAP PO ONE (20:15)
[2017-07-04] MEDS ORDERED: ETONMIS VAGRING (20:24)
--- NOTE | 2017-07-04 21:24 | EMERGENCY ROOM VISIT NOTE ---
ED Visit Note First contact with patient: 21:22 Pt seen and evaluated by anesthesia and blood patch performed. General precautions given at discharge. Pt to follow-up with neurology.
--- NOTE | 2017-07-04 21:26 | Procedure Note ---
Procedure Note Procedure Date Jul 04, 2017. Procedure Description Procedure Name: Epidural blood patch Procedure time out: side/site verified, patient ID confirmed, correct procedure Consent obtained: written Performed by: attending Indications: therapeutic Contraindications: none Description: The patient was placed in a sitting position while wearing a surgical hair net. The patient's back was prepped with Duraprep and sterilely draped. Using sterile technique, the patient's back was palpated. At the L4/5 space where the previous dural puncture was noted, lidocaine 1% was injected into the skin. A 17 gauge Touhy was then advance using loss of resistance with saline. At 8 cm a loss was felt. The patient's left arm was sterilely prepped and a 20 gauge IV was placed using sterile gloves but only 3 ml of blood was able to be drawn prior to the IV blowing. A calibration laboratory technician was called and utilizing sterile technique a butterfly was placed and 20 ml of blood was sterilely drawn from the patient's L arm. The blood was injected into the epidural site using sterile technique. The epidural needle was removed. The patient lied back on the bed. Complications: none Patient tolerated procedure: well Post-procedure vital signs: reviewed and stable Comments: The patient tolerated the procedure well. She was given gabapentin 200 mg po and 500 mg of IV caffeine. The patient feels much better and is able to sit up without headache. Her vitals are all stable. The patient was counseled to remain hydrated as well as to drink caffeinated beverages. She was counseled to return to the ER if she develops a fever, numbness, tingling, or incontinence fo the lower extremities, or if she develops severe back pain or tenderness over the epidural site.
[2017-07-04 22:32] VITALS: BP 119/73; PULSE 100; TEMP 36.3; O2SAT 98
== END 2017-07-04 22:33 | disposition home or self-care (01) ==
LOC: C.EDB 16:33
DX: T88.59XA Other complications of anesthesia, initial encounter (principal); R51 Headache; Z87.891 Personal history of nicotine dependence; Z83.3 Family history of diabetes mellitus; Z88.0 Allergy status to penicillin

== ENCOUNTER 2019-05-25 04:35 | Inpatient (IN) ==
[2019-05-25] MEDS: LACTATED RINGER'S 1,000 ML IV PRN ×3 (09:51→19:45)
[2019-05-25] MEDS ORDERED: OXYTOCIN 30 UNITS/500 ML BAG IV PRN ×3 (09:56→20:39)
--- NOTE | 2019-05-25 10:06 | History & Physical Report ---
Date of Service May 25, 2019 Assessment & Plan (1) IUGR (intrauterine growth restriction) affecting care of mother: (2) : Admit to L&D. IV fluids, EFM/toco, labs. OK for epidural when she desires. History of Present Illness Chief Complaint: contractions Primary Care Provider: Kelsi Hogan PA-C 24yo @ 36 05/[birth year] presented overnight with contractions. Has made cervical change, this with contractions has been diagnosed as labor. is complicated by: contractions: 02/22/19--FFN positive, received steroids. IUGR diagnosed at 33 weeks. +Chlamydia, retest at 36w was negative. GBS negative. + movement, no vaginal bleeding or leaking of fluid. Cervix now 4/50/-3. Allergies Allergy/AdvReac Type Severity Reaction Status Date / Time amoxicillin Allergy Intermediate HIVES Verified 05/21/19 09:26 rizatriptan [From Maxalt] AdvReac Severe red in Verified 05/21/19 09:26 face and chest. chest pain Home Medications Home Medications Medication Instructions Recorded Confirmed Type vit-iron fum-folic ac 1 tab PO DAILY 04/23/19 05/25/19 History [ Vitamin] Patient History Medical History (Updated 05/03/19 @ 11:25 by Jose Cheney Jr, MD, FACOG) Anxiety and depression Cystitis (Resolved) False labor before 37 completed weeks of gestation Intractable nausea and vomiting (Acute) with 25 completed weeks gestation (Inactive) Pseudotumor (Acute) Seasonal allergies (Chronic) Sepsis Sinus tachycardia Vaginal bleeding during Surgical History (Updated 05/03/19 @ 10:42 by Rossi Parra RN) S/P tonsillectomy (Resolved) S/P tooth extraction wisdom teeth 2010 Social History Preferred Language: Belarusian Communication Ability: Effective Beliefs That Will Affect Care: None marital status: Current Living Situation: Alone Current Living Situation Comment: lives with 4 year old son Other Information That Helps Us Care for You: No Feels Safe at Home: Yes Safety Concerns: Feels Safe At This Time Smoking Status: Never smoker Second Hand Exposure: No (boyfriend and mom smoke but not around her) ; Hx Alcohol Use: No Hx Substance Use: No Review of Systems All systems reviewed & are unremarkable except as noted in HPI & below Physical Exam Constitutional: WD/WN, vitals as above Respiratory: normal respiratory effort, lungs clear to auscultation no respiratory distress Cardiovascular: Rate/Rhythm: regular rate and regular rhythm Gastrointestinal (Abdomen): Inspection/Auscultation: abdomen normal to inspection Percussion/Palpation: abdomen soft; abdomen nontender Gravid. No s/s chorio or abruption. Skin: no rashes, warm and dry Psychiatric: A+Ox3, euthymic affect Results & Data Vital Signs (Past 12 Hours) Vital Signs Temp Pulse Resp BP 05/25/19 07:23 36.5 C 20 05/25/19 07:22 117 H 120/58 L 05/25/19 04:53 36.7 C 20 Coding Level of Care Code None Diagnoses IUGR (intrauterine growth restriction) affecting care of mother O36.5990 Z3A.15 Weeks of gestation: 15 weeks (1) Weeks of gestation: 15 weeks Qualified Code(s): Z3A.15 - 15 weeks gestation of
[2019-05-25 10:25] LABS: Hematocrit (blood only) 35.3 % (37-47); Hemoglobin 11.4 g/dL (12.0-16.0); Mean Corpuscular Hemoglobin 27.1 pg (25-34); Mean Corpuscular Volume 83.8 fL (80-100); Mean Platelet Volume 9.8 fL (7.4-10.4); Platelet Count 181 K/uL (130-400); RDW Coefficient of Variation 14.9 % (11.5-14.5); RDW Standard Deviation 45.7 fL (36.4-46.3); Red Blood Count 4.21 M/uL (4.2-5.4); White Blood Count 11.94 K/uL (4.8-10.8)
[2019-05-25 10:29] LABS: Mean Corpuscular Hgb Conc 32.3 g/dL (32-36)
[2019-05-25] MEDS: ACETAMINOPHEN 500 MG TAB PO PRN ×2 (11:37→19:20)
[2019-05-25] MEDS ORDERED: ePHEDrine sulfate 50 MG/ML AMP ONE (13:29)
[2019-05-25] MEDS ORDERED: fentaNYL citrate 100 MCG/2 ML VIAL ONE (13:29)
[2019-05-25] MEDS ORDERED: BUPIVACAINE 0.25% 30 ML VIAL ONE (13:30)
[2019-05-25] MEDS ORDERED: fentaNYL 2MCG/ML ROPIV 1.25MG/ML 100 ML BAG EPI ONE (13:30)
--- NOTE | 2019-05-25 14:01 | Anesthesiology Consultation ---
Date of Service May 25, 2019 Assessment & Plan Chart Review Chart Review: Acceptable Risk for Surgery, Patient NOT seen in Pre Admission Testing and Acceptable Risk for Labor Epidural Consults Requested none ASA ASA2 Proposed Anesthesia Anesthesia Type: General and Labor Epidural Risk / Benefits Reviewed With: PT / POA / Parent / Guardian, Accepts Plan and Informed Consent Obtained History Height/Weight Height: 5 ft 6 in Weight: 92.986 kg Allergies Allergy/AdvReac Type Severity Reaction Status Date / Time amoxicillin Allergy Intermediate HIVES Verified 05/21/19 09:26 rizatriptan [From Maxal] AdvReac Severe red in Verified 05/21/19 09:26 face and chest. chest pain Medications Home Medications Medication Instructions Recorded Confirmed Last Taken vit-iron fum-folic ac 1 tab PO DAILY 04/23/19 05/25/19 1 Day Ago [ Vitamin] ~05/24/19 Active Medications Generic Name Dose Route Start Last Admin Trade Name Freq PRN Reason Stop Dose Admin Acetaminophen 1,000 mg 05/25/19 11:19 05/25/19 11:37 Tylenol PO 06/24/19 11:18 1,000 mg Q6H PRN Administration Pain Lactated Ringer's 1,000 mls @ 125 mls/hr 05/25/19 09:56 05/25/19 13:58 Lr IV 05/27/19 09:55 125 mls/hr .Q8H PRN Administration L&D Protocol Protocol Oxytocin 30 units in 500 mls @ 7 mls/hr 05/25/19 11:19 05/25/19 13:18 Pitocin IV 05/27/19 11:18 0.42 units/hr .Q24H PRN 7 mls/hr Labor Induction/Augmentation Titration Protocol 0.42 UNITS/HR NPO Date Last Intake of Fluids: 05/25/19 Time Last Intake of Fluids: 13:00 Date Last Intake of Solids: 05/24/19 Time Last Intake of Solids: 20:00 Past Medical History Medical History Anxiety and depression Cystitis (Resolved) False labor before 37 completed weeks of gestation Intractable nausea and vomiting (Acute) with 25 completed weeks gestation (Inactive) Pseudotumor (Acute) Seasonal allergies (Chronic) Sepsis Sinus tachycardia Vaginal bleeding during Exercise / Class Metabolic Activity II 4-5 Yardwork/Stairs/Walk up hill Past Family History Family History Mother Anxiety Bipolar disorder Depression Thyroid disease Unknown Cardiac disorder Diabetes Grandfather (Paternal) Cancer Grandmother Migraine headache Other Family history non-contributory Past Surgical History Surgical History S/P tonsillectomy (Resolved) S/P tooth extraction wisdom teeth 2010 Past Anesthesia History No Hx of Anesthesia Complications and No Family Hx of Anesthesia Complications History of PONV No Hx of PONV and No Hx of Motion Sickness Social History Smoking Status: Never smoker Hx Alcohol Use: No Hx Substance Use: No substance use type: does not use Physical Exam Vital Signs Last Vital Signs Temp 36.5 C 05/25/19 07:23 Pulse 102 H 05/25/19 13:55 Resp 20 05/25/19 07:23 BP 120/63 05/25/19 13:40 Pulse Ox 99 05/25/19 13:55 Constitutional + obese ENMT Mouth: no dentition abnormality Thyromental Distance: < 3.5 Finger Breadths Mallampati Class: II Neck normal visual inspection and trachea midline; neck extension not limited Respiratory normal respiratory effort Auscultation: lungs clear to auscultation bilaterally Cardiovascular Rate/Rhythm: regular rate and regular rhythm Heart Sounds: no murmur Musculoskeletal Spine: lumbar spine normal to inspection; normal cervical ROM Neurologic moves all extremities Motor/Sensory: no sensory deficit Psychiatric Orientation: alert and oriented x 3 Testing Laboratory Results 05/25/19 10:11
[2019-05-25] MEDS ORDERED: NALBUPHINE HCL INJ 10 MG/ML AMP IV PRN (14:24)
[2019-05-25] MEDS ORDERED: NALOXONE HCL 1 MG in SODIUM CHLORIDE 0.9% 1000ML 1,000 ML IV PRN (14:24)
[2019-05-25] MEDS ORDERED: ONDANSETRON INJ 2 MG/ML 2 ML VIAL IV PRN (14:24)
[2019-05-25] MEDS ORDERED: PROMETHAZINE HCL 25 MG in SODIUM CHLORIDE 0.9% 50 ML IV PRN (14:24)
[2019-05-25] MEDS ORDERED: ePHEDrine sulfate 50 MG/ML AMP IV PRN (14:24)
[2019-05-25] MEDS ORDERED: fentaNYL 2MCG/ML ROPIV 1.25MG/ML 100 ML BAG EPI PRN (14:24)
[2019-05-25] MEDS ORDERED: DiphenhydrAMINE HCL 50 MG/ML VIAL IV PRN (14:24)
[2019-05-25] MEDS ORDERED: NALOXONE HCL 0.4 MG/1 ML VIAL/CARP IV PRN (14:24)
--- NOTE | 2019-05-25 14:40 | Obstetrical Progress Note ---
Date of Service May 25, 2019 Subjective Comfortable with epidural. BP dropped immediately following, improved with 1 dose ephedrine. AROM performed, clear fluid with blood tinge. Cervix 4/50/-3. FHT 160-170s, mod variability, +accels. No decels. [place] - not measuring ctx yet, however was measuring Q2 min prior to epidural Will continue pitocin, anticipate . Results & Data Vital Signs (Past 12 Hours) Vital Signs Temp Pulse Resp BP Pulse Ox 05/25/19 14:36 116 H 132/67 100 05/25/19 14:34 105 H 136/68 05/25/19 14:32 80 112/52 L 05/25/19 14:31 84 98 05/25/19 14:30 114 H 71/37 L 05/25/19 14:29 90 70/33 L 05/25/19 14:26 104 H 100 05/25/19 14:22 112 H 103/52 L 05/25/19 14:21 123 H 99 05/25/19 14:16 117 H 121/72 97 05/25/19 14:11 117 H 98 05/25/19 14:06 134 H 100 05/25/19 14:02 98 H 123/68 05/25/19 14:01 98 H 100 05/25/19 13:55 102 H 99 05/25/19 13:50 108 H 97 05/25/19 13:45 106 H 99 05/25/19 13:40 102 H 120/63 98 05/25/19 13:35 97 H 97 05/25/19 13:25 101 H 98 05/25/19 13:20 93 H 100 05/25/19 13:15 95 H 100 05/25/19 13:10 92 H 97 05/25/19 13:05 101 H 98 05/25/19 12:57 99 H 96 05/25/19 12:52 104 H 97 05/25/19 12:47 103 H 103/51 L 97 05/25/19 12:42 99 H 96 05/25/19 12:37 111 H 98 05/25/19 12:32 102 H 96 05/25/19 12:27 104 H 97 05/25/19 12:22 106 H 96 05/25/19 12:17 109 H 97 05/25/19 12:12 111 H 98 05/25/19 12:07 117 H 97 05/25/19 07:23 36.5 C 20 05/25/19 07:22 117 H 120/58 L 05/25/19 04:53 36.7 C 20 PG Care Time/CCT Total # of Minutes Spent Total Time Spent with Patient: Total time spent is greater than 50% in coordination of care (as documented) at patient's floor/unit and/or counseling patient: Coding Level of Care Code None
--- NOTE | 2019-05-25 17:50 | Obstetrical Progress Note ---
Date of Service May 25, 2019 Subjective Feeling contractions, no pressure or urge to push. FHT Cat 1 [place] Q 2 SVE 5/80/-1 IUPC and FSE placed after counseling patient. Results & Data Vital Signs (Past 12 Hours) Vital Signs Temp Pulse Resp BP Pulse Ox 05/25/19 17:46 113 H 100 05/25/19 17:41 110 H 100 05/25/19 17:40 120 H 115/59 L 05/25/19 17:36 110 H 98 05/25/19 17:31 112 H 99 05/25/19 17:26 115 H 98 05/25/19 17:24 114 H 115/61 05/25/19 17:21 116 H 99 05/25/19 17:16 120 H 98 05/25/19 17:11 123 H 100 05/25/19 17:09 114 H 107/55 L 05/25/19 17:06 128 H 98 05/25/19 17:01 101 H 100 05/25/19 16:56 139 H 99 05/25/19 16:54 125 H 111/57 L 05/25/19 16:51 130 H 99 05/25/19 16:46 120 H 100 05/25/19 16:41 138 H 100 05/25/19 16:39 120 H 116/61 05/25/19 16:36 115 H 99 05/25/19 16:31 111 H 99 05/25/19 16:26 36.8 C 115 H 20 99 05/25/19 16:24 117 H 112/58 L 05/25/19 16:21 125 H 100 05/25/19 16:16 120 H 99 05/25/19 16:11 121 H 100 05/25/19 16:09 121 H 108/56 L 05/25/19 16:06 113 H 100 05/25/19 16:01 120 H 100 05/25/19 15:56 129 H 100 05/25/19 15:54 121 H 111/55 L 05/25/19 15:51 113 H 100 05/25/19 15:46 104 H 100 05/25/19 15:41 102 H 100 05/25/19 15:39 111 H 111/54 L 05/25/19 15:36 99 H 99 05/25/19 15:31 117 H 99 05/25/19 15:26 114 H 99 05/25/19 15:23 120 H 110/53 L 05/25/19 15:21 114 H 100 05/25/19 15:18 100 H 123/56 L 05/25/19 15:16 118 H 99 05/25/19 15:14 113 H 116/55 L 05/25/19 15:11 112 H 98 05/25/19 15:08 112 H 103/56 L 05/25/19 15:06 106 H 100 05/25/19 15:03 109 H 92/53 L 05/25/19 15:01 106 H 100 05/25/19 14:58 113 H 93/54 L 05/25/19 14:56 115 H 100 05/25/19 14:53 111 H 97/50 L 05/25/19 14:51 115 H 100 05/25/19 14:48 111 H 127/58 L 05/25/19 14:46 122 H 100 05/25/19 14:42 107 H 139/60 05/25/19 14:41 96 H 99 05/25/19 14:40 120 H 121/56 L 05/25/19 14:38 103 H 135/61 05/25/19 14:36 116 H 132/67 100 05/25/19 14:34 105 H 136/68 05/25/19 14:32 80 112/52 L 05/25/19 14:31 84 98 05/25/19 14:30 114 H 71/37 L 05/25/19 14:29 90 70/33 L 05/25/19 14:26 104 H 100 05/25/19 14:22 112 H 103/52 L 05/25/19 14:21 123 H 99 05/25/19 14:16 117 H 121/72 97 05/25/19 14:11 117 H 98 05/25/19 14:06 134 H 100 05/25/19 14:02 98 H 123/68 05/25/19 14:01 98 H 100 05/25/19 13:55 102 H 99 05/25/19 13:50 108 H 97 05/25/19 13:45 106 H 99 05/25/19 13:40 102 H 120/63 98 05/25/19 13:35 97 H 97 05/25/19 13:25 101 H 98 05/25/19 13:20 93 H 100 05/25/19 13:15 95 H 100 05/25/19 13:10 92 H 97 05/25/19 13:05 101 H 98 05/25/19 12:57 99 H 96 05/25/19 12:52 104 H 97 05/25/19 12:47 103 H 103/51 L 97 05/25/19 12:42 99 H 96 05/25/19 12:37 111 H 98 05/25/19 12:32 102 H 96 05/25/19 12:27 104 H 97 05/25/19 12:22 106 H 96 05/25/19 12:17 109 H 97 05/25/19 12:12 111 H 98 05/25/19 12:07 117 H 97 05/25/19 07:23 36.5 C 20 05/25/19 07:22 117 H 120/58 L PG Care Time/CCT Total # of Minutes Spent Total Time Spent with Patient: Total time spent is greater than 50% in coordination of care (as documented) at patient's floor/unit and/or counseling patient: Coding Level of Care Code None
[2019-05-25] MEDS ORDERED: ACETAMINOPHEN 500 MG TAB PO PRN (19:11)
[2019-05-25] MEDS ORDERED: LACTATED RINGER'S 500 ML IV ONE (19:30)
[2019-05-25] MEDS ORDERED: bisacodyL 10 MG SUPP PR PRN (20:39)
[2019-05-25] MEDS ORDERED: HYDROCORTISONE ACETATE 25 MG SUPP PR PRN (20:39)
[2019-05-25] MEDS ORDERED: DIPHTHERIA/TETANUS/PERTUSSIS 0.5 ML SYR/VIAL IM ONE (20:39)
[2019-05-25] MEDS ORDERED: BENZOCAINE 20% AER SPR 82.5 GM CAN EXT PRN (20:39)
[2019-05-25] MEDS ORDERED: SUPERCREAM 0.870% 15 GM JAR EXT PRN (20:39)
[2019-05-25] MEDS ORDERED: OXYCODONE/ACETAMINOPHEN 5mg/325mg TAB PO PRN (20:39)
[2019-05-25] MEDS ORDERED: ACETAMINOPHEN 325 MG TAB PO PRN (20:39)
--- NOTE | 2019-05-25 21:36 | Anesthesia Procedure Note ---
Date of Service May 25, 2019 Anesthesia Post Epidural Note Vital Signs Vital Signs: Temp Pulse Resp BP Pulse Ox 37.4 C 129 H 18 109/52 L 96 05/25/19 20:28 05/25/19 21:28 05/25/19 21:13 05/25/19 21:28 05/25/19 20:21 Pain Intensity Bilateral Back: Pain Intensity: 4 Notes Mental Status: alert / awake / arousable Nausea / Vomiting: adequately controlled Pain: adequately controlled Airway Patency, RR, SpO2: stable & adequate BP & HR: stable & adequate Hydration State: stable & adequate Neuraxial Anesthesia: was administered and sensory block is resolving Anesthetic Complications: no major complications apparent Epidural: Removed without complications and With tip intact
--- NOTE | 2019-05-25 22:41 | Delivery Summary ---
Vaginal Delivery Summary Date of Service May 25, 2019 Vaginal Delivery Summary Vaginal Delivery Summary: Pre-delivery diagnoses: [id number] @ 36 05/04, spontaneous labor, IUGR, h/o chlamydia Post-delivery diagnoses: same Procedure: spontaneous vaginal delivery Surgeon: Johanny Royal DO Complications: none Findings: Viable female . Apgars: 8/9 . Weight pending, please see nursery records Estimated blood loss: 300ml Description of delivery: The patient progressed to complete with epidural anesthesia. She then began to push. She spontaneously vaginally delivered a viable from the cephalic presentation. The head delivered in LUZ MARIA position. The anterior shoulder delivered, followed by the posterior shoulder, followed by the body. The baby was placed on mother's abdomen and a spontaneous cry was heard. Delayed cord clamping was employed, and the cord was doubly clamped and cut. Cord blood was obtained. The placenta was delivered spontaneously intact with a 3-vessel cord. The uterus and vagina were swept of clots and debris. IV pitocin was given. The uterus became firm. The cervix, vagina, and perineum were inspected and no lacerations were noted. Excellent hemostasis was observed. The mother and baby are recovering in stable and good condition in the room. Sponge and instrument counts were correct x 2. Johanny Royal DO [facility] Vaginal Delivery Charge Vaginal Delivery Codes: 70783 global code for the antepartum, delivery, and post-
[2019-05-26] MEDS: IBUPROFEN 600 MG TAB PO PRN ×3 (02:25→20:14)
--- NOTE | 2019-05-26 06:22 | Obstetrical Progress Note ---
Date of Service May 26, 2019 Assessment & Plan (1) Status post vaginal delivery: Joceline is a 24 yo on PPD 1 after at term. - GBS -, Blood Type O +, Rubella immune -Vitals reviewed and WNL -patient is doing clinically well Recovering normally. - After discharge will have [address] Royal. Supervising Physician Co-Signing Physician Notes Resident Physician Supervision Note: I was present with Dr. Huston during the history and exam. I discussed the case with the resident and agree with the findings and plan as documented in the note. Any exceptions or clarifications are listed here: PPD#1 doing well. Will take mucinex this morning. Would like to go home tomorrow. Documented By: Johanny Royal DO Subjective Ambulation: ambulating normally Voiding: no voiding problems Passing Gas:: Yes Diet Tolerance:: regular diet Lochia:: Small Feeding Type:: bottle feeding Review of Systems Constitutional: no fever, no chills and no sweats Eyes: no worsening vision Respiratory: no cough and no dyspnea Cardiovascular: no chest pain, no palpitations, no edema and no calf pain Gastrointestinal: no nausea and no vomiting Genitourinary: no dysuria and no urinary frequency Neurologic: no headache(s) Physical Exam Constitutional: WD/WN, vitals as above no acute distress Respiratory: normal respiratory effort, lungs clear to auscultation does not use accessory muscles Auscultation: no crackles, no rales, no rhonchi, no wheezes and no pleural rub Cardiovascular: Rate/Rhythm: regular rate and regular rhythm Heart Sounds: normal S1 and normal S2; no gallop, no murmur and no cardiac rub Extremities: no calf tenderness and no pedal edema Gastrointestinal (Abdomen): Inspection/Auscultation: normal bowel sounds; abdomen not distended Percussion/Palpation: abdomen soft Genitourinary: Uterus: fundus firm, palpable 1 cm below the umbilicus Results & Data Vital Signs (Past 12 Hours) Vital Signs Temp Pulse Pulse Resp BP BP Pulse Ox 05/26/19 04:45 36.9 C 94 H 17 104/51 L 98 05/25/19 23:05 36.6 C 128 H 18 114/58 L 98 05/25/19 23:00 36.9 C 05/25/19 22:32 137 H 100/54 L 05/25/19 22:28 133 H 109/56 L 05/25/19 22:18 134 H 107/53 L 05/25/19 22:08 131 H 106/53 L 05/25/19 21:58 133 H 18 108/57 L 05/25/19 21:48 134 H 108/56 L 05/25/19 21:38 136 H 103/54 L 05/25/19 21:28 129 H 18 109/52 L 05/25/19 21:18 122 H 105/52 L 05/25/19 21:13 18 05/25/19 21:08 129 H 107/53 L 05/25/19 20:58 126 H 18 106/51 L 05/25/19 20:53 125 H 117/55 L 05/25/19 20:43 18 05/25/19 20:38 126 H 100/54 L 05/25/19 20:28 37.4 C 116 H 18 104/51 L 05/25/19 20:24 118 H 111/59 L 05/25/19 20:21 116 H 96 05/25/19 20:16 118 H 97 05/25/19 20:11 130 H 97 05/25/19 20:09 127 H 113/54 L 05/25/19 20:06 136 H 100 05/25/19 20:01 128 H 98 05/25/19 19:56 126 H 97 05/25/19 19:54 122 H 104/55 L 05/25/19 19:51 121 H 99 05/25/19 19:46 122 H 99 05/25/19 19:41 125 H 100 05/25/19 19:39 129 H 106/56 L 05/25/19 19:36 124 H 100 05/25/19 19:31 124 H 100 05/25/19 19:26 120 H 100 05/25/19 19:25 37.7 C H 18 05/25/19 19:24 129 H 115/55 L 05/25/19 19:21 135 H 100 05/25/19 19:16 130 H 100 05/25/19 19:11 123 H 100 05/25/19 19:09 125 H 114/53 L 05/25/19 19:06 129 H 100 05/25/19 19:01 129 H 100 05/25/19 18:56 128 H 100 05/25/19 18:54 127 H 100/51 L 05/25/19 18:51 120 H 05/25/19 18:46 132 H 05/25/19 18:41 124 H 100 05/25/19 18:39 126 H 112/54 L 05/25/19 18:36 118 H 100 05/25/19 18:31 119 H 100 05/25/19 18:26 117 H 100 05/25/19 18:25 126 H 121/58 L Resident Activity Tracking Resident Involvement: Resident Care Provided Care Provided: Adult Hospital Medicine
[2019-05-26 06:44] LABS: Hematocrit (blood only) 33.1 % (37-47); Hemoglobin 10.6 g/dL (12.0-16.0)
[2019-05-26] MEDS: PRENATAL VITAMIN 1 TAB PO SCH (07:35)
[2019-05-26] MEDS: DOCUSATE SODIUM 100 MG CAP PO SCH ×2 (07:35→20:14)
[2019-05-26] MEDS ORDERED: guaiFENesin 600 MG TABCR PO SCH ×2 (08:00→09:00)
[2019-05-26] MEDS ORDERED: bisacodyL 5 MG TABEC PO SCH (20:00)
[2019-05-26] MEDS: guaiFENesin 600 MG TABCR PO SCH (20:14)
[2019-05-26] MEDS ORDERED: AZITHROMYCIN 250 MG TAB PO ONE (23:10)
--- NOTE | 2019-05-26 23:20 | Obstetrical Progress Note ---
Date of Service May 26, 2019 Assessment & Plan (1) Sinusitis: start Azithromycin now [id number] sent to pharmacy continue Mucinex as needed check rapid strep throat culture- reported as negative Subjective called to evaluate patient for worsening cough & nasal drainage. Nasal drainage has now turned from clear to green. She is now coughing up green phlegm and has a sore throat. no fever but has been getting chills then sweats. Physical Exam Constitutional WD/WN, vitals as above Respiratory normal respiratory effort and + cough Auscultation: + rhonchi (both bases right >left); no wheezes harsh breath sounds in both base Results & Data Vital Signs (Past 12 Hours) Vital Signs Temp Pulse Pulse Resp BP Pulse Ox 05/26/19 19:50 98.2 F 96 H 18 112/69 98 05/26/19 15:30 97.7 F 89 18 105/66 97 05/26/19 11:30 97.3 F L 92 H 18 119/75 99
--- NOTE | 2019-05-27 06:29 | Obstetrical Progress Note ---
Date of Service May 27, 2019 Assessment & Plan (1) Status post vaginal delivery: Joceline is a 24 yo on PPD 2 after at term. - GBS -, Blood Type O +, Rubella immune -Vitals reviewed and WNL -patient is doing clinically well; taking mucinex for nasal congestion Recovering normally. Discharge instructions reviewed - After discharge will have [address] Royal. Supervising Physician Co-Signing Physician Notes Resident Physician Supervision Note: I interviewed and examined the patient. Discussed with Dr. Huston and agree with findings and plan as documented in the note. Any exceptions or clarifications are listed here: She was started on azithromycin for sinusitis the night before discharge. Feeling better now. Documented By: Deisi Hernandez MD, FACOG Subjective Ambulation: ambulating normally Voiding: no voiding problems Passing Gas:: Yes Diet Tolerance:: regular diet Lochia:: Small Feeding Type:: bottle feeding Review of Systems Constitutional: no fever, no chills and no sweats Eyes: no worsening vision Ear, Nose, Mouth, Throat: + nasal discharge Respiratory: no cough and no dyspnea Cardiovascular: no chest pain, no palpitations, no edema and no calf pain Gastrointestinal: no nausea and no vomiting Genitourinary: no dysuria and no urinary frequency Neurologic: no headache(s) Physical Exam Constitutional: WD/WN, vitals as above no acute distress Respiratory: normal respiratory effort, lungs clear to auscultation does not use accessory muscles Auscultation: no crackles, no rales, no rhonchi, no wheezes and no pleural rub Cardiovascular: Rate/Rhythm: regular rate and regular rhythm Heart Sounds: normal S1 and normal S2; no gallop, no murmur and no cardiac rub Extremities: no calf tenderness and no pedal edema Gastrointestinal (Abdomen): Inspection/Auscultation: normal bowel sounds; abdomen not distended Percussion/Palpation: abdomen soft Genitourinary: Uterus: fundus firm, palpable 2 cm below the umbilicus Results & Data Vital Signs (Past 12 Hours) Vital Signs Temp Pulse Resp BP Pulse Ox 05/26/19 23:15 36.6 C 89 18 109/64 99 05/26/19 19:50 36.8 C 96 H 18 112/69 98 Resident Activity Tracking Resident Involvement: Resident Care Provided Care Provided: OB Delivery
[2019-05-27] MEDS: IBUPROFEN 600 MG TAB PO PRN (06:51)
[2019-05-27] MEDS: guaiFENesin 600 MG TABCR PO SCH (08:26)
[2019-05-27] MEDS: PRENATAL VITAMIN 1 TAB PO SCH (08:26)
[2019-05-27] MEDS: DOCUSATE SODIUM 100 MG CAP PO SCH (08:26)
== END 2019-05-27 10:30 | disposition home or self-care (01) | DRG 807 ==
LOC: OPB 04:35 → 4S1 04:42 → 4N 23:23

== ENCOUNTER 2020-05-12 09:41 | Observation (INO) ==
[2020-05-12] MEDS ORDERED: LACTATED RINGER'S 1,000 ML IV PRN (10:14)
[2020-05-12] MEDS ORDERED: BETAMETH SOD PHOS/ACETATE IA 6 MG/ML IM STA (10:28)
[2020-05-12] MEDS ORDERED: ceFAZolin 2000MG 2,000 MG/15 ML SYR IV STA (10:32)
[2020-05-12 10:41] LABS: Hematocrit (blood only) 36.8 % (37-47); Mean Corpuscular Hemoglobin 27.5 pg (25-34); Mean Corpuscular Hgb Conc 32.6 g/dL (32-36); Mean Corpuscular Volume 84.4 fL (80-100); Mean Platelet Volume 10.3 fL (7.4-10.4); Platelet Count 212 K/uL (130-400); RDW Coefficient of Variation 13.7 % (11.5-14.5); RDW Standard Deviation 42.5 fL (36.4-46.3); Red Blood Count 4.36 M/uL (4.2-5.4); White Blood Count 9.97 K/uL (4.8-10.8)
--- NOTE | 2020-05-12 10:42 | History & Physical Report ---
Date of Service May 12, 2020 Assessment & Plan (1) premature rupture of membranes (PPROM) delivered, current hos pitalization: Patient is confirm ruptured on sterile speculum exam cervix appears long thick and closed I did not perform a cervical exam at this time AmniSure is positive there is gross fluid pooling in the vagina and her nitrazine is positive. I reviewed with Dr. Lawrence from [place] maternal- medicine fellow. She accepts transfer she is recommended steroids these have been given she has recommended GBS antibiotics she has a mild amoxicillin allergy which she had as a child and she agrees to [facility] group B strep swab culture is done and will be run at her lab she has a negative Covid test from May 10 so this has not been repeated. I believe she is safe to be transferred by ambulance as she is not cheryl at this time note I did review the case with her paraffin plant operator as well Dr. Ocasio and we discussed the possibility of staying but at 34 weeks we felt the best outcome for the baby and the mother would be a tertiary care center with the NICU All of this was reviewed with the patient patient understands and accepts Reviewed why the transfer was appropriate for the baby being by 6 weeks All the patient's questions were answered It should be noted I did perform a bedside ultrasound which confirms vertex position and minimal amniotic fluid is seen. Nonstress test is reactive with good accelerations no obvious contractions and patient does not feel any contractions History of Present Illness Primary Care Provider: Kelsi Hogan PA-C Patient is 34 weeks gestational age completed today she has been followed by our office for a relatively normal however yesterday she presented with symptoms of rupture of membranes and was assessed by the provider product development consultant at that time was felt she was not ruptured. Today she contacted the office with a big gush of fluid and a pop around 8:30 in the morning she then presented to labor and delivery and was assessed she is having no contractions she had some bleeding yesterday but no more bleeding. The fluid continues to leak it is running down her leg she is wondering if she is ruptured Allergies Allergy/AdvReac Type Severity Reaction Status Date / Time amoxicillin Allergy Intermediate HIVES Verified 05/04/20 08:04 sumatriptan Allergy Unknown Verified 05/04/20 08:04 rizatriptan [From [facility]] AdvReac Severe red in Verified 05/04/20 08:04 face and chest. chest pain Home Medications Medication Instructions Recorded Confirmed Type prenat.vits,yolanda,[id number] 1 tab PO DAILY 03/22/20 05/04/20 History [ Vitamin] escitalopram oxalate 10 mg tablet 10 mg PO DAILY #30 tab 03/28/20 05/04/20 Rx Patient History Medical History (Updated 05/12/20 @ 10:38 by Trevor Shelby MD, FACOG) Anxiety and depression Chlamydia infection Cholelithiasis without cholecystitis Cystitis False labor before 37 completed weeks of gestation Intractable nausea and vomiting IUGR (intrauterine growth restriction) affecting care of mother Normal in multigravida, antepartum Other specified related conditions, third trimester with 25 completed weeks gestation Pseudotumor Seasonal allergies Sepsis Sinus tachycardia Sinusitis Vaginal bleeding during Viral gastroenteritis Surgical History S/P tonsillectomy S/P tooth extraction wisdom teeth 2011 Status post vaginal delivery Family History Mother Anxiety Bipolar disorder Depression Thyroid disease Unknown Cardiac disorder Diabetes Grandfather (Paternal) Cancer Grandmother Migraine headache Other Family history non-contributory Social History (Updated 05/11/20 @ 16:14 by Deborah Borden RN) Smoking Status: Former smoker Age Quit Using Tobacco: 23; Number of Years Since Quit: 2; Second Hand Exposure: No; Hx Alcohol Use: No Hx Substance Use: No Preferred Language: Turkmen Communication Ability: Effective Visual Impairment: No Limitations Hearing Ability: Normal Machine Molder Squeeze Required: No Beliefs That Will Affect Care: None marital status: Current Living Situation: Alone Current Living Situation Comment: lives alone with 2 children, [address] 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 Feels Safe at Home: Yes caffeine: Yes (coffee/soda) Dental Care, Regularly: Yes Seatbelt Use: always Sexual Activity: has been sexually active within the last 12 months Assistive Devices: Contacts Physical Exam Genitourinary: Speculum/Bimanual Exam: normal appearance of the vagina Patient is grossly ruptured on sterile speculum exam there is copious fluid in the vagina swab is positive for nitrazine and AmniSure is positive cervix appears closed and thick Results & Data ([facility]) Vital Signs (Past 12 Hours) Vital Signs Temp Pulse Resp BP 05/12/20 09:56 98.1 F 92 H 20 113/60 Coding Level of Care Code 93336 Initial Inpt Care Lvl 3 Diagnoses premature rupture of membranes (PPROM) delivered, current hospitalization O42.919
--- NOTE | 2020-05-16 09:02 | Discharge Summary ---
Date of Service May 16, 2020 Admission HPI Per Admitting Provider Patient is 34 weeks gestational age completed today she has been followed by our office for a relatively normal however yesterday she presented with symptoms of rupture of membranes and was assessed by the provider transportation dispatch manager at that time was felt she was not ruptured. Today she contacted the office with a big gush of fluid and a pop around 8:30 in the morning she then presented to labor and delivery and was assessed she is having no contractions she had some bleeding yesterday but no more bleeding. The fluid continues to leak it is running down her leg she is wondering if she is ruptured Hospital Course (1) premature rupture of membranes (PPROM) delivered, current hospitalization: Patient is confirm ruptured on sterile speculum exam cervix appears long thick and closed I did not perform a cervical exam at this time AmniSure is positive there is gross fluid pooling in the vagina and her nitrazine is positive. I reviewed with Dr. Lawrence from [place] maternal- medicine fellow. She accepts transfer she is recommended steroids these have been given she has recommended GBS antibiotics she has a mild amoxicillin allergy which she had as a child and she agrees to [facility] B strep swab culture is done and will be run at her lab she has a negative Covid test from May 10 so this has not been repeated. I believe she is safe to be transferred by ambulance as she is not cheryl at this time note I did review the case with her assistant professor of mathematics as well Dr. Ocasio and we discussed the possibility of staying but at 34 weeks we felt the best outcome for the baby and the mother would be a tertiary care center with the NICU All of this was reviewed with the patient patient understands and accepts Reviewed why the transfer was appropriate for the baby being by 6 weeks All the patient's questions were answered It should be noted I did perform a bedside ultrasound which confirms vertex pos ition and minimal amniotic fluid is seen. Nonstress test is reactive with good accelerations no obvious contractions and patient does not feel any contractions Coding Level of Care Code None Diagnoses premature rupture of membranes (PPROM) delivered, current hospitalization O42.919
== END 2020-05-12 11:50 | disposition short-term general hospital (02) | DRG 833 ==
LOC: OPB 09:41 → 4S1 09:52 → INTOOBSV 10:14 → 4S1 10:14
DX: O46.93 Antepartum hemorrhage, unspecified, third trimester; Z87.891 Personal history of nicotine dependence; Z88.0 Allergy status to penicillin; Z3A.34 34 weeks gestation of pregnancy; Z79.899 Other long term (current) drug therapy; Z88.8 Allergy status to other drugs, medicaments and biological substances; O42.913 Preterm premature rupture of membranes, unspecified as to length of time between rupture and onset of labor, third trimester